=== PATIENT | male | born 1965 | race Caucasian/White ===

== ENCOUNTER 2019-04-14 08:16 | Day surgery (SDC) | payer OTHER ==
[~2019-04-14] VITALS: Ht 185.4 cm; Wt 133.4 kg
[~2019-04-14 08:16] MED LIST: ASPI-1; CARV12.5; LIPI80TA PO; LISI10TA4; NS 1,000 ML IV ONE; ZOLO100T
[2019-04-14] MEDS ORDERED: LIDOCAINE 2% INJ 100 MG/5 ML SDV (FOR ANES.) As Ordered ONE (10:06)
[2019-04-14] MEDS ORDERED: PROPOFOL 200 MG/20 ML VIAL As Ordered ONE ×2 (10:06→10:32)
[2019-04-14] MEDS ORDERED: OMEP10CASR PO (10:16)
[2019-04-14] MEDS ORDERED: CETACAINE SPRAY 5GM As Ordered ONE (10:27)
--- NOTE | 2019-04-14 10:38 | ROOR ---
Patient Name: Keny Shah Procedure Date: 04/14/2019 10:25 AM Date of : 1965 Age: 53 Room: [facility] Gender: Male Note Status: Finalized Procedure: Upper Endoscopy + Biopsies Indications: Heartburn, Exclusion of Ye's esophagus Providers: Guilherme Rizo MD Referring MD: [facility], Admin. Requesting Provider: Medicines: Monitored Anesthesia Care Complications: No immediate complications. Procedure: Pre-Anesthesia Assessment: - The heart rate, respiratory rate, oxygen saturations, blood pressure, adequacy of pulmonary ventilation, and response to care were monitored throughout the procedure. The Endoscope was introduced through the mouth, and advanced to the second part of duodenum. The upper GI endoscopy was accomplished without difficulty. The patient tolerated the procedure well. Findings: The Z-line was irregular and was found 43 cm from the incisors. Multiple biopsies were obtained with cold forceps for evaluation to rule out Ye's Esophagus randomly at the gastroesophageal junction. A small hiatal hernia was present. No other significant abnormalities were identified in a careful examination of the stomach. The exam of the duodenum was otherwise normal. Impression: - Z-line irregular, 43 cm from the incisors. - Small hiatal hernia. - Multiple biopsies were obtained at the gastroesophageal junction. - The examination was otherwise normal. Recommendation: - Patient has a contact number available for emergencies. The signs and symptoms of potential delayed complications were discussed with the patient. Return to normal activities tomorrow. Written discharge instructions were provided to the patient. - High fiber diet. - Discharge patient to home. - Follow an antireflux regimen. - Continue present medications. - Await pathology results. - Telephone GI clinic for pathology results in 1 week. - Return to referring physician. - The findings and recommendations were discussed with the patient's family. Guilherme Rizo MD Guilherme Rizo MD 04/14/2019 10:38:02 AM Electronically signed by Guilherme Rizo MD Number of Addenda: 0 Note Initiated On: 04/14/2019 10:25 AM Estimated Blood Loss: Estimated blood loss: none.
--- NOTE | 2019-04-14 10:59 | ROOR ---
Patient Name: Keny Shah Procedure Date: 04/14/2019 10:26 AM Date of : 1965 Age: 53 Room: [facility] Gender: Male Note Status: Finalized Procedure: Total Colonoscopy + Biopsy Polypectomy + Hemoclips Indications: Screening for colorectal malignant neoplasm Providers: Guilherme Rizo MD Referring MD: Glenis BECK[facility] [place], [facility], Admin. Requesting Provider: Medicines: Monitored Anesthesia Care Complications: No immediate complications. Procedure: Pre-Anesthesia Assessment: - The heart rate, respiratory rate, oxygen saturations, blood pressure, adequacy of pulmonary ventilation, and response to care were monitored throughout the procedure. The Colonoscope was introduced through the anus and advanced to the cecum, identified by appendiceal orifice and ileocecal valve. The colonoscopy was performed without difficulty. The patient tolerated the procedure well. The quality of the bowel preparation was excellent. Findings: The perianal and digital rectal examinations were normal. Non-bleeding internal hemorrhoids were found during retroflexion. The hemorrhoids were small and Grade I (internal hemorrhoids that do not prolapse). A medium polyp was found in the ascending colon. The polyp was sessile. The polyp was removed with a jumbo cold forceps. Resection and retrieval were complete. To prevent bleeding after the polypectomy, three hemostatic clips were successfully placed (MR conditional). There was no bleeding at the end of the procedure. The exam was otherwise without abnormality on direct and retroflexion views. Impression: - Non-bleeding internal hemorrhoids. - One medium polyp in the ascending colon, removed with a jumbo cold forceps. Resected and retrieved. Clips (MR conditional) were placed. - The examination was otherwise normal on direct and retroflexion views. - The exam was otherwise normal to the cecum. Recommendation: - Patient has a contact number available for emergencies. The signs and symptoms of potential delayed complications were discussed with the patient. Return to normal activities tomorrow. Written discharge instructions were provided to the patient. - High fiber diet. - Discharge patient to home. - Continue present medications. - Await pathology results. - Telephone GI clinic for pathology results in 1 week. - Return to referring physician. - Repeat colonoscopy in 5 years for surveillance based on pathology results. - Return to referring physician. - Check Portal Online for Path Results.([email or web address]) - The findings and recommendations were discussed with the patient's family. Guilherme Rizo MD Guilherme Rizo MD 04/14/2019 10:58:41 AM Electronically signed by Guilherme Rizo MD Number of Addenda: 0 Note Initiated On: 04/14/2019 10:26 AM Estimated Blood Loss: Estimated blood loss: none.
[2019-04-14 11:24] VITALS: BP 144/92
== END 2019-04-14 11:34 | disposition home or self-care (01) ==
LOC: M OPP 08:16
PROVIDERS: ATTEND Internal Medicine Gastroenterology
DX: K64.0 First degree hemorrhoids (principal); D12.2 Benign neoplasm of ascending colon; K22.8 Other specified diseases of esophagus; K44.9 Diaphragmatic hernia without obstruction or gangrene; R12 Heartburn; Z79.82 Long term (current) use of aspirin; Z79.899 Other long term (current) drug therapy; Z12.11 Encounter for screening for malignant neoplasm of colon

== ENCOUNTER 2024-07-21 12:49 | Day surgery (SDC) | payer OTHER ==
[~2024-07-21] VITALS: Ht 185.4 cm; Wt 134.1 kg
[~2024-07-21 12:49] MED LIST changes: +LISI10TA22; -LISI10TA4; -NS 1,000 ML IV ONE; +OMEP10CASR PO
[2024-07-21] MEDS ORDERED: fentaNYL 100 MCG/2 ML INJECTION As Ordered ONE (13:06)
[2024-07-21] MEDS ORDERED: LIDOCAINE 2% 100MG/5ML SDV (FOR ANES.) As Ordered ONE (13:06)
[2024-07-21] MEDS: NS 250 ML IV ONE (13:10)
[2024-07-21] MEDS ORDERED: propofoL 500 MG/50 ML VIAL As Ordered ONE (13:12)
[2024-07-21] MEDS ORDERED: ONDANSETRON 4MG 2ML VIAL As Ordered ONE (14:10)
[2024-07-21 14:25] VITALS: TEMP 98.1
[2024-07-21 14:50] VITALS: BP 132/57; O2SAT 97
== END 2024-07-21 14:55 | disposition home or self-care (01) ==
LOC: M OPP 12:49
PROVIDERS: ATTEND Internal Medicine Gastroenterology
DX: Z12.11 Encounter for screening for malignant neoplasm of colon (principal); D12.2 Benign neoplasm of ascending colon; K57.30 Diverticulosis of large intestine without perforation or abscess without bleeding; K64.0 First degree hemorrhoids; R12 Heartburn; Z86.0100 Personal history of colon polyps, unspecified; Z90.49 Acquired absence of other specified parts of digestive tract; I25.2 Old myocardial infarction; Z95.5 Presence of coronary angioplasty implant and graft; E78.00 Pure hypercholesterolemia, unspecified; Z79.82 Long term (current) use of aspirin; Z79.899 Other long term (current) drug therapy
CPT/HCPCS: 43235; 45385; 88305; J2405; J3010